=== PATIENT | male | born 1990 | race Caucasian/White ===

== ENCOUNTER 2021-06-12 12:37 | Emergency (ER) | payer OTHER ==
[~2021-06-12] VITALS: Ht 175.3 cm; Wt 77.1 kg
[2021-06-12] MEDS ORDERED: AMOX-430 PO (13:25)
[2021-06-12] MEDS ORDERED: GENT5DRO4 RIGHTEYE (13:25)
--- NOTE | 2021-06-12 14:04 | NUR ---
PT WAS D/C'd TO HOME.D/C ISTRUCTIONS GIVEN TO THE PT BY DR MARTINEZ.
[2021-06-12 14:05] VITALS: BP 129/77
== END 2021-06-12 14:05 | disposition home or self-care (01) ==
LOC: ER 12:43
DX: L03.213 Periorbital cellulitis (principal); H00.011 Hordeolum externum right upper eyelid
CPT/HCPCS: A4663